=== PATIENT | male | born 1995 | race Caucasian/White ===

== ENCOUNTER 2022-04-29 17:12 | Emergency (ER) | payer OTHER ==
[2022-04-29 17:20] VITALS: BP 130/88; PULSE 98; RESP 18; TEMP 98.4; BMI 39.1
[2022-04-29] MEDS ORDERED: ACETAMINOPHEN 325 MG TABLET (FP) PO ONE (18:35)
[2022-04-29] MEDS ORDERED: ACETAMINOPHEN 325 MG TABLET (FP) ONE (18:48)
== END 2022-04-29 21:53 | disposition home or self-care (01) ==
LOC: JERFT 17:12
DX: S09.90XA Unspecified injury of head, initial encounter (principal); W01.198A Fall on same level from slipping, tripping and stumbling with subsequent striking against other object, initial encounter
CPT/HCPCS: 70450-TC; 72125-TC; 73552-TC-LT-FY; 73562-TC-LT-FY; 99285-25